=== PATIENT | male | born 2000 | race American Indian/Alaskan Native ===

== ENCOUNTER 2023-02-19 09:39 | Emergency (ER) | payer SELFPAY ==
[~2023-02-19] VITALS: Ht 182.9 cm; Wt 63.5 kg
[2023-02-19 09:53] VITALS: O2SAT 100
[2023-02-19 11:50] VITALS: BP 115/72; PULSE 78; RESP 16; TEMP 98.6
== END 2023-02-19 11:58 | disposition home or self-care (01) ==
LOC: ER 09:39
DX: G40.909 Epilepsy, unspecified, not intractable, without status epilepticus (principal); Z98.890 Other specified postprocedural states
CPT/HCPCS: 99281